=== PATIENT | male | born 1995 | race Caucasian/White ===

== ENCOUNTER → 2017-11-18 14:03 | Outpatient (CLI) | payer OTHER, SELFPAY ==
--- NOTE | 2017-11-18 14:34 | XR_ITS ---
XR knee LT 3V HISTORY: ITS.REASON: ACUTE LT KNEE PAIN ORDERING PHYSICIAN: Alina Hanson PATIENT AGE: 22 years COMPARISON: FINDINGS: No fracture or dislocation. No lytic or blastic change. Normal mineralization. No significant arthritic changes evident. There is increased soft tissue density in the suprapatellar region consistent with knee joint effusion. IMPRESSION: Suprapatellar effusion otherwise negative
== END ==
PROVIDERS: PCP Nurse Practitioner; Visit Provider Nurse Practitioner
DX: M25.562 Pain in left knee (principal)
CPT/HCPCS: 73562

== ENCOUNTER 2021-08-18 01:09 | Emergency (ER) | payer SELFPAY ==
[2021-08-18 01:10] VITALS: BP 156/99; PULSE 122; RESP 18; TEMP 37.1; O2SAT 95; BMI 21.1
--- NOTE | 2021-08-18 01:18 | HMH.EDMCLR ---
ED Disposition Clinical Impression: Medical clearance for incarceration Disposition: Home, Self-Care Condition on Discharge: Good Instructions: DI for Substance Use Disorder Additional Instructions: see pcp for follow up Referrals: Willy Mathews MD [Primary Care Provider] - - Critical Care Critical Care Time: No Attestation: On 08/18/21, the high probability of a clinically significant, sudden or life threatening deterioration of the following system(s) required my full and direct attention, intervention and personal management. The time I documented below is in addition to time spent performing reported procedures but includes the following listed in this critical care notation. Medical Decision Making - Medical Records Medical records reviewed: Yes: I reviewed the patient's medical records. - Man Inquiry Pt receiving controlled substance: No Vital Signs: 08/18/21 01:10 Temperature 98.7 F Temperature Source Oral Pulse Rate [Right] 122 H Respiratory Rate 18 Blood Pressure [Right Arm] 156/99 H Blood Pressure Mean [Right Arm] 118 02 Sat by Pulse Oximetry 95 - Lab Data Lab results reviewed: Yes: I reviewed the patient's lab results. Medical Decision Narrative: stable exam Medical Clearance HPI - General Chief complaint: Medical Clearance Stated complaint: medical clearance Time Seen by Provider: 08/18/21 01:15 Mode of Arrival: Ambulatory Source of Information: Patient, Medical Record Limitations: No Limitations Description of Symptoms (Recalled from ER Triage Doc. by RN): pt here for medical clearence. pt has no c/o - History of Present Illness HPI Narrative: no c/o MD complaint: medical clearance requested Onset (ago): hour(s) Reason for Medical Clearance: medical condition Place: home Traumatic Symptoms: denies traumatic injury Associated Symptoms: denies other symptoms Treatments Prior to Arrival: none Home medications: Home Medications Medication Instructions Recorded Confirmed No Known Home Medications 03/22/19 03/22/19 Allergies/Adverse reactions: Allergies Allergy/AdvReac Type Severity Reaction Status Date / Time PEANUTS (FOOD) Allergy Severe S-DIFF. Uncoded 07/05/17 15:02 BREATHING [facility] History - Hepatitis A Screen Drug use history?: No High risk sexual behaviors?: No History of sexually transmitted infection?: No Currently employed?: No Childcare worker?: No Do you have indoor plumbing?: Yes Do you have electricity?: Yes Attestation statement:: This patient has been screened for Hepatitis A risk factors. I have reviewed the patient's past medical history: Yes 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: Denies:: Diabetes Mellitus Type 1, Diabetes Mellitus Type 2 Other Surgeries: Yes: No Previous Surgery - Social History Smoking Status: Current every day smoker Tobacco Type: cigarettes # Packs/Day (cigarettes): 1 Alcohol Intake: current Alcohol Intake Frequency:: a few times a week Occupational Status: employed Family Hx:: No significant family history ROS Obtained: Yes All systems reviewed & no additional complaints Physical Exam - General General appearance: alert - Head Head exam: normocephalic - Eye Eye exam: Present: PERRL, EOMI - ENT ENT exam: Present: mucous membranes moist - Neck Neck exam: Present: trachea midline - Respiratory Respiratory exam: Present: normal lung sounds bilaterally. Absent: respiratory distress - Cardiovascular Cardiovascular exam: Present: regular rate. Absent: systolic murmur - Abdominal Exam Abdominal exam: Present: soft - Extremities Exam Extremities exam: Present: full ROM - Neurological Exam Neurological exam: Present: alert, oriented X3, CN II-XII intact. Absent: motor sensory deficit - Psychiatric Psychiatric exam: Present: normal affect - Skin Skin exam: Absent: rash
[2021-08-18 01:24] VITALS: BP 156/99; PULSE 122; RESP 18; TEMP 37.1; O2SAT 95
== END 2021-08-18 01:25 | disposition home or self-care (01) ==
PROVIDERS: Emergency Provider Emergency Medicine; PCP Family Medicine
DX: Z00.8 Encounter for other general examination (principal); F17.210 Nicotine dependence, cigarettes, uncomplicated
CPT/HCPCS: 99282

== ENCOUNTER 2022-01-02 11:36 | Emergency (ER) | payer SELFPAY ==
[2022-01-02 11:48] VITALS: BP 130/92; PULSE 104; RESP 17; TEMP 37.8; O2SAT 97; BMI 21.7
--- NOTE | 2022-01-02 11:53 | HMH.EDUTC ---
[facility] [place] Disposition Clinical Impression: Viral syndrome Pharyngitis Qualifiers: Pharyngitis/tonsillitis etiology: unspecified etiology Qualified Code(s): J02.9 - Acute pharyngitis, unspecified Disposition: Home, Self-Care Condition on Discharge: Good Instructions: Preventing the Spread of Coronavirus Discharge Instructions Additional Instructions: Drink plenty of fluids. Take tylenol or ibuprofen for pain or fever. Take the medications as directed. Follow up with your regular doctor. GO TO THE ER FOR ANY WORSENING SYMPTOMS Quarantine until you know the results of your covid-19 test. Notify your school or workplace of your results and follow their instructions regarding return to work/school. Prescriptions: Brompheniramine/Pseudoephed/Dm [Bromfed Dm Cough Syrup] 5 ml PO Q6HP PRN #240 ml PRN Reason: Cough Transmission Status: Received by [id number] Amoxicillin [Amoxicillin 500mg Tab] 500 mg PO TID 10 Days #30 tab Transmission Status: Received by [id number] predniSONE [Prednisone 20mg Tab] 20 mg PO BID 3 Days #6 tab Transmission Status: Received by [id number] Referrals: Provider,Referral, [Primary Care Provider] - Forms: Work/School Release Time of Disposition: 12:31 Medical Decision Making - Medical Records Medical records reviewed: No: I reviewed the patient's medical records. - Man Inquiry Pt receiving controlled substance: No Vital Signs: 01/02/22 11:48 01/02/22 12:37 Temperature 100.1 F H 100.0 F H Temperature Source Oral Pulse Rate 104 H Pulse Rate [Left Radial] 104 H Respiratory Rate 17 17 Blood Pressure 130/92 H Blood Pressure [Right Arm] 130/92 H Blood Pressure Mean [Right Arm] 104 02 Sat by Pulse Oximetry 97 - Lab Data Lab Results 01/02/22 11:45: Group A Strep Rapid Negative Orders (Tests/Meds): ORDERS Category Date Time Status Strep Screen Confirmation Stat Micro 01/02/22 11:45 Received [facility] [place] HPI - General Stated complaint: sore throat Time Seen by Provider: 01/02/22 11:54 Description of Symptoms (Recalled from Triage Doc. by RN): patient comes in today for sore throat and possible fever blisters. symptoms began 3 days ago HEENT Symptoms (Recalled from RN notes): Yes Resp Symptoms (Recalled from RN notes): No Skin Symptoms (Recalled from RN notes): No MS Symptoms (Recalled from RN notes): No Functional Status (Recalled from RN notes): wnl - History of Present Illness Provider Complaint: He c/o sore throat for the past 3 days. He denies significant congestion and cough. - Related Data Previous Rx's Medication Instructions Recorded Amoxicillin [Amoxicillin 500mg Tab] 500 mg PO TID 10 Days #30 tab 01/02/22 Brompheniramine/Pseudoephed/Dm 5 ml PO Q6HP PRN #240 ml 01/02/22 [Bromfed Dm Cough Syrup] predniSONE [Prednisone 20mg 20 mg PO BID 3 Days #6 tab 01/02/22 Tab] Allergies Allergy/AdvReac Type Severity Reaction Status Date / Time PEANUTS (FOOD) Allergy Severe S-DIFF. Uncoded 07/05/17 15:02 BREATHING - Worker's Comp Is this a Worker's Comp case?: No [facility] History - Hepatitis A Screen Attestation statement:: This patient has been screened for Hepatitis A risk factors. I have reviewed the patient's past medical history: Yes 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: Denies:: Diabetes Mellitus Type 1, Diabetes Mellitus Type 2 Other Surgeries: Yes: No Previous Surgery - Social History Smoking Status: Current every day smoker Tobacco Type: cigarettes # Packs/Day (cigarettes): 1 Alcohol Intake: current Alcohol Intake Frequency:: a few times a week Occupational Status: employed Family Hx:: No significant family history ROS Obtained: Yes All systems reviewed & no additional complaints - Constitutional Constitutional: Reports as per HPI - Eyes Eyes: Denies eye discharge - ENT Ears, Nose, Mouth, and Throat: Reports as per HPI - Cardiovascular Cardiovascular: Denies kunal
[2022-01-02 12:17] LABS: Strep Scrn Group A (Rapid) Negative (Negative)
[2022-01-02 12:37] VITALS: BP 130/92; PULSE 104; RESP 17; TEMP 37.8
== END 2022-01-02 12:42 | disposition home or self-care (01) ==
PROVIDERS: Emergency Provider Nurse Practitioner Family
DX: J02.9 Acute pharyngitis, unspecified (principal); F17.210 Nicotine dependence, cigarettes, uncomplicated; Z20.822 Contact with and (suspected) exposure to COVID-19; Z79.01 Long term (current) use of anticoagulants; Z91.010 Allergy to peanuts
CPT/HCPCS: 87430; 99213; C9803; G0463; U0003; U0005

== ENCOUNTER 2022-11-25 18:12 | Emergency (ER) | payer SELFPAY ==
[2022-11-25 18:33] VITALS: BP 141/90; PULSE 87; RESP 16; TEMP 37.1; O2SAT 98; BMI 21.7
--- NOTE | 2022-11-25 18:33 | EXP.UTC ---
Discharge Plan Disposition Patient Disposition: Home, Self-Care Condition: Good Prescriptions Prescriptions: New ondansetron 4 mg Tablet,Disintegrating 4 mg PO Q8H PRN (Reason: Nausea) Qty: 12 0RF No Action prednisone 20 MG tablet 20 mg PO BID 3 Days Qty: 6 0RF amoxicillin 500 MG tablet 500 mg PO TID 10 Days Qty: 30 0RF tjtqweffjenqqkk-zzaduioqm-EA 118 ML syrup 5 ml PO Q6HP PRN (Reason: Cough) Qty: 240 0RF Referrals Follow up/Referrals: Provider,Referral, MD [Primary Care Provider] - See instructions Activity Restrictions/Add. Instructions Additional Instructions/Restrictions: Drink plenty of fluids. Take tylenol or ibuprofen for pain or fever. Take the medications as directed. Follow up with your regular doctor. GO TO THE ER FOR ANY WORSENING SYMPTOMS Clinical Impressions Clinical Impression: Gastroenteritis Stand Alone Forms Stand Alone Forms: Work/School Release Instructions Patient Instructions: DI for Viral Gastroenteritis -- Adult, Ondansetron Discharge ED Provider: Morales [place] [facility] General Stated complaint: vomiting, Needs Work note Time Seen by Provider: 11/25/22 18:32 History of Present Illness Provider Complaint: He states that since last night he has had n/v/d. He denies abdominal pain. His girlfriend has had similar symptoms. Related Data Previous Rx's Medication Instructions Recorded amoxicillin 500 mg tablet 500 mg PO TID 10 days #30 tabs 01/02/22 dqftuetaxmpafum-egotcrdtluuvxop-OK 5 ml PO Q6HP PRN Cough #240 mL 01/02/22 2 mg-30 mg-10 mg/5 mL oral syrup prednisone 20 mg tablet 20 mg PO BID 3 days #6 tabs 01/02/22 ondansetron 4 mg disintegrating 4 mg PO Q8H PRN Nausea #12 tabs 11/25/22 tablet Allergies Allergy/AdvReac Type Severity Reaction Status Date / Time PEANUTS (FOOD) Allergy Severe S-DIFF. Uncoded 07/05/17 15:02 BREATHING [facility] Disclaimer: The information contained in this section may have been updated after the patient was seen, as this information can be updated by other users. Social History Smoking Status: Current every day smoker tobacco type: cigarettes packs per day: 1 alcohol intake: current current occupational status: employed Travel in the last 8 weeks: None ROS Obtained: Yes All systems reviewed & no additional complaints except as documented Constitutional Constitutional: Denies chills, Denies fever(s) and Reports poor appetite ENT Ears, Nose, Mouth, and Throat: Denies dizziness and Denies sore throat Cardiovascular Cardiovascular: Denies dyspnea Respiratory Respiratory: Denies chest congestion, Denies cough and Denies dyspnea Genitourinary Male Genitourinary: Denies hematuria, Denies urinary frequency, Denies urinary hesitancy, Denies urinary incontinence and Denies urinary urgency Musculoskeletal Musculoskeletal: Denies arthralgias Integumentary/Breasts Skin/Breast: Denies rash Neurologic Neurologic: Denies dizziness Physical Exam General General appearance: alert and in no apparent distress Head Head exam: atraumatic and normocephalic Eye Eye exam: Present normal appearance, PERRL and EOMI ENT ENT exam: Present normal exam, normal oropharynx, mucous membranes moist, TM's normal bilaterally and normal external ear exam Neck Neck exam: Present normal inspection, full ROM and trachea midline; Absent tenderness, meningismus or lymphadenopathy Chest Chest inspection: Present normal inspection and symmetric chest wall rise; Absent tenderness, rash or abscess Respiratory Respiratory exam: Present normal lung sounds bilaterally; Absent respiratory distress, wheezes or stridor Cardiovascular Cardiovascular exam: Present regular rate and normal rhythm; Absent irregular rhythm, systolic murmur, diastolic murmur or JVD Abdominal Exam Abdominal exam: Present soft and hyperactive bowel sounds; Absent distention, tenderness, guarding, rebound
[2022-11-25 18:38] VITALS: BP 141/90; PULSE 87; RESP 16; TEMP 37.1
== END 2022-11-25 18:40 | disposition home or self-care (01) ==
PROVIDERS: Emergency Provider Nurse Practitioner Family
DX: K52.9 Noninfective gastroenteritis and colitis, unspecified (principal); R11.2 Nausea with vomiting, unspecified; F17.210 Nicotine dependence, cigarettes, uncomplicated
CPT/HCPCS: 99212; 99214; G0463

== ENCOUNTER 2023-01-31 13:15 | Emergency (ER) | payer OTHER, SELFPAY ==
[2023-01-31 13:30] VITALS: BP 122/79; PULSE 72; RESP 20; TEMP 37.1; O2SAT 98; BMI 23.1
--- NOTE | 2023-01-31 13:49 | EXP.UTC ---
Discharge Plan Disposition Patient Disposition: Home, Self-Care Condition: Good Prescriptions Prescriptions: New ondansetron 4 mg tablet,disintegrating 4 mg PO Q8H PRN (Reason: nausea and vomiting) Qty: 10 0RF Referrals Follow up/Referrals: Provider,Referral, MD [Primary Care Provider] - See instructions Activity Restrictions/Add. Instructions Additional Instructions/Restrictions: Drink extra fluids with and between meals. If you have difficulty drinking, try very small amounts of water or suck on ice chips. ? Avoid fruit juices, as these do not replace minerals and can actually increase diarrhea. ? Children and adults can use sports drinks to replenish electrolytes. Younger children and infants should use products formulated for children, like oral rehydration solutions. ? Eat food in small amounts and let your stomach recover. ? Get lots of rest. You may feel tired or weak. ? No greasy or fried foods for the next 24-48 hours BRAT diet Bananas Rice Apples and [place] ? Make sure to drink plenty of liquids ? Return if needed ? Straight to ER if any life threatening symptoms ? Zofran as prescribed ? Follow up with family doctor in the next 48-72 hours if no improvement or any worsening of symptoms Clinical Impressions Clinical Impression: Nausea vomiting and diarrhea Instructions Patient Instructions: Nausea and Vomiting-Adult, Diarrhea Discharge ED Provider: Isabella Rodriguez [facility] General Stated complaint: vomiting, diarrhea Mode of Arrival: Ambulatory Source of Information: Patient Limitations: No Limitations Time Seen by Provider: 01/31/23 13:50 Description of Symptoms (Recalled from Triage Doc. by RN): PATIENT C/O VOMITING, NAUSEA AND DIARRHEA THAT STARTED LAST NIGHT. HE REPORTS HIS DAUGHTER HAD THE SAME SYMPTOMS LAST NIGHT HEENT Symptoms (Recalled from RN notes): No Resp Symptoms (Recalled from RN notes): No Skin Symptoms (Recalled from RN notes): No MS Symptoms (Recalled from RN notes): No Functional Status (Recalled from RN notes): WNL History of Present Illness Provider Complaint: Patient states that he started with N/V/D yesterday States that daughter was having same symptoms thinks he had a stomach bug and needed a note for work Related Data Previous Rx's Medication Instructions Recorded ondansetron 4 mg disintegrating 4 mg PO Q8H PRN nausea and 01/31/23 tablet vomiting #10 tabs Allergies Allergy/AdvReac Type Severity Reaction Status Date / Time peanut Allergy Verified 01/31/23 13:39 Worker's Comp Is this a Worker's Comp case?: No [facility] Disclaimer: The information contained in this section may have been updated after the patient was seen, as this information can be updated by other users. 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 (Updated 01/31/23 @ 14:16 by Isabella Rodriguez APRN) Asthma Social History Smoking Status: Current every day smoker tobacco type: cigarettes packs per day: 1 alcohol intake: current current occupational status: employed Travel in the last 8 weeks: None ROS Obtained: Yes All systems reviewed & no additional complaints except as documented and Yes Systems reviewed as appropriate & no additional complaints except as documented Constitutional Constitutional: Reports system reviewed and no additional complaints, except as documented, Reports as per HPI and Denies fever(s) ENT Ears, Nose, Mouth, and Throat: Reports system reviewed and no additional complaints, except as documented, Reports as per HPI, Denies otalgia, Denies sinus pain, Denies sinus pressure and Denies sore throat Cardiovascular Cardiovascular: Reports system reviewed and no additional complaints, except as documented, Reports as per HPI and Denies chest pain Respiratory Respiratory: Reports system reviewed and no additional complaints, except as documented, Re
[2023-01-31 14:16] VITALS: BP 122/79; PULSE 72; RESP 20; TEMP 37.1; O2SAT 98
== END 2023-01-31 14:20 | disposition home or self-care (01) ==
PROVIDERS: Emergency Provider Nurse Practitioner
DX: R19.7 Diarrhea, unspecified (principal); R11.2 Nausea with vomiting, unspecified; J45.909 Unspecified asthma, uncomplicated
CPT/HCPCS: 99212; 99214; G0463

== ENCOUNTER 2023-07-16 16:37 | Emergency (ER) | payer OTHER, SELFPAY ==
[2023-07-16 16:38] VITALS: BP 174/109; PULSE 124; RESP 24; TEMP 36.9; O2SAT 96; BMI 23.1
--- NOTE | 2023-07-16 16:53 | PC.NURSE ---
DR MORELOS AT BEDSIDE
--- NOTE | 2023-07-16 17:02 | ED_ITS ---
Discharge Plan Disposition Patient Disposition: Left Against Medical Advice Prescriptions Prescriptions: No Action ondansetron 4 mg tablet,disintegrating 4 mg PO Q8H PRN (Reason: nausea and vomiting) Qty: 10 0RF Referrals Follow up/Referrals: Provider,Referral, [Primary Care Provider] - See instructions Clinical Impressions Clinical Impression: Tachycardia, Head injury Discharge ED Provider: Virginia Quintana General Adult HPI General Chief complaint: Head Injury Stated complaint: HEAD INJURY Time Seen by Provider: 07/16/23 16:52 Mode of Arrival: Wheelchair Source of Information: Patient and Parent(s) Limitations: No Limitations Description of Symptoms (Recalled from ER Triage Doc. by RN): pt presents to ED after stating he hit his head while helping his mom move furniture around 1300. pt reports he believes he did black out. pt crying and anxious at triage. History of Present Illness HPI narrative: Patient is a 28-year-old male presents today with head injury. States he was helping his mom move stood up and hit his head onto a metal trailer and lost consciousness shortly after that. Woke up and has felt okay since that time but called his father crying. States he is not normally a crier and that he feels very confused right now he denies any alcohol or drug use today. States that he does drink regularly last drink was yesterday. States he only has a few drinks a day and that he does not have any withdrawal symptoms historically. No nausea and vomiting associated with this. No focal neurologic deficits from historical standpoint. Related Data Previous Rx's Medication Instructions Recorded ondansetron 4 mg disintegrating 4 mg PO Q8H PRN nausea and 01/31/23 tablet vomiting #10 tabs Allergies Allergy/AdvReac Type Severity Reaction Status Date / Time peanut Allergy Verified 01/31/23 13:39 [facility] Disclaimer: The information contained in this section may have been updated after the patient was seen, as this information can be updated by other users. 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 (Updated 07/16/23 @ 17:05 by Virginia Quintana MD) Asthma Social History Smoking Status: Current every day smoker tobacco type: cigarettes packs per day: 1 alcohol intake: current current occupational status: employed Travel in the last 8 weeks: None ROS Obtained: Yes All systems reviewed & no additional complaints except as documented Physical Exam General General appearance: alert and in no apparent distress Eye Eye exam: Present conjunctival redness and other (Dilated pupils bilaterally) Respiratory Respiratory exam: Present normal lung sounds bilaterally; Absent respiratory distress Cardiovascular Cardiovascular exam: Present normal rhythm and tachycardia (Heart rate 125-140 on my evaluation) Abdominal Exam Abdominal exam: Present soft; Absent distention or tenderness Neurological Exam Neurological exam: Present alert, oriented X3, CN II-XII intact and normal gait; Absent motor sensory deficit Psychiatric Psychiatric exam: Present other (Bizarre affect) Medical Decision Making Man Inquiry Pt receiving controlled substance: No Vital Signs: 07/16/23 16:38 Temperature 98.5 F Temperature Source Oral Pulse Rate [Right Radial] 124 H Respiratory Rate 24 Blood Pressure [Right Arm] 174/109 H Blood Pressure Mean [Right Arm] 130 Blood Pressure Source [Right Arm] Automatic Cuff Blood Pressure Position [Right Arm] Sitting 02 Sat by Pulse Oximetry 96 Oxygen Delivery Method Room Air Orders (Tests/Meds): ED MEDICATIONS Generic Name Dose Route Start Last Admin Trade Name Freq PRN Reason Stop Dose Admin Lactated Ringer's 1,000 mls @ 999 mls/hr 07/16/23 17:00 Lactated Ringer's 1000 Ml Bag IV 07/16/23 18:00 .Q1H1M MICHAELA Discontinued Medications Generic Name Dose Route Start Last Admin Trade Name Freq PRN Reason Stop Dose Admin Acetaminophen 1,000 mg 07/16/23 16:59 Acetaminophen 1,000mg/100ml Vial IV 07/16/23 17:00 ONCE ONE ORDERS Category Date Time Status CT head/brain wo con Stat Cat Scan 07/16/23 16:59 Ordered CBC w/Auto Diff [Complete Blood Count Auto Diff] Stat Lab 07/16/23 17:00 Ordered CMP [Comprehensive Metabolic Panel] Stat Lab 07/16/23 17:00 Ordered Ethanol [Ethyl Alcohol] Stat Lab 07/16/23 17:01 Ordered UA [Urinalysis and Microscopic] Stat Lab 07/16/23 17:00 Ordered UDS [Drug Screen,Urine] Stat Lab 07/16/23 17:00 Ordered Medical Decision Narrative: Is a 28-year-old male presented today with significant tachycardia after head injury and acting little bit bizarre and tearful. His father who is at the bedside states he is never seen his son act like this before. I suspect possible drug use we will get a urine drug screen as well as an alcohol level. Certainly could be alcohol withdrawal as well with his history of drinking. IV fluids will be administered I will get a CT scan of the patient's head he has a GCS of 15 normal neurologic exam I do not suspect a significant intracranial injury. Reassessment 5:16 PM patient got disgruntled with his dad who is refusing all workup. He does have a GCS of 15 and a nonfocal neurologic exam. He is acting a little bit bizarre I suspect that has been doing some drugs or possibly some alcohol cannot confirm this definitively his father was also concerned about this. Patient is adamantly refusing all workup. He understands that he could be missing a significant injury that could be life-threatening and cause disability or . He articulated that to me and voiced that to me he has a mental capacity be making his decisions we could not hold him against as well and he signed out AGAINST MEDICAL ADVICE. Critical Care Critical Care Time Critical Care Time: No
--- NOTE | 2023-07-16 17:13 | PC.NURSE ---
Pt is refusing to have blood drawn or provide a urine sample at this time.
--- NOTE | 2023-07-16 17:17 | PC.NURSE ---
staff went into room to start IV and administer medications when pt stated he no longer wanted to be seen as a patient and was ready to leave. Dr. Quintana notified and went in and spoke with patient regarding leaving. Risks explained to patient per Dr. Quintana and this nurse regarding leaving without any test. pt informed to return at any time.
[2023-07-16 17:20] VITALS: BP 174/109; PULSE 124; RESP 24; TEMP 36.9; O2SAT 96
== END 2023-07-16 17:20 | disposition left against medical advice (07) ==
PROVIDERS: Emergency Provider Student in an Organized Health Care Education/Training Program
DX: S06.9X9A Unspecified intracranial injury with loss of consciousness of unspecified duration, initial encounter (principal); F17.210 Nicotine dependence, cigarettes, uncomplicated; J45.909 Unspecified asthma, uncomplicated; W22.09XA Striking against other stationary object, initial encounter; R00.0 Tachycardia, unspecified
CPT/HCPCS: 96361; 96374; 99284; 99285

== ENCOUNTER 2023-10-01 08:18 | Emergency (ER) | payer OTHER, SELFPAY ==
[2023-10-01 08:25] VITALS: BP 148/83; PULSE 96; RESP 20; TEMP 37; O2SAT 98; BMI 23.7
[2023-10-01 08:43] LABS: UTC Strep Screen (Rapid) Positive (Negative)
--- NOTE | 2023-10-01 08:43 | EXP.UTC ---
Discharge Plan Disposition Patient Disposition: Home, Self-Care Condition: Good Prescriptions Prescriptions: New azithromycin 250 mg tablet 250 mg PO DIRECTED Qty: 6 0RF Rx Instructions: Take two (2) tablets on day #1, then one (1) tablet day #2 thru #5 No Action ondansetron 4 mg tablet,disintegrating 4 mg PO Q8H PRN (Reason: nausea and vomiting) Qty: 10 0RF Referrals Follow up/Referrals: Provider,Referral, MD [Primary Care Provider] - See instructions Activity Restrictions/Add. Instructions Additional Instructions/Restrictions: Start antibiotics today be sure to take it as ordered with the full length of time although you should start feeling better in 24-48 hours. Change toothbrush and toothpaste 24-48 hours after starting antibiotics Tylenol or Motrin as needed for fever or pain Encourage fluids, water, Gatorade, Powerade, try cold fluids, popsicles, ice cream will make it feel better You are contagious for 24 hours. Avoid kissing anyone, no eating or drinking after anyone. You are contagious. Follow-up the ER for new or worsening symptoms or no noticeable improvement over the next 24-48 hours. Follow-up with PCP this week. Clinical Impressions Clinical Impression: Strep sore throat Instructions Patient Instructions: DI for Sinusitis Discharge ED Provider: Chace ([facility])Annette [facility] [place] HPI General Stated complaint: sore throat Mode of Arrival: Ambulatory Source of Information: Patient Limitations: No Limitations Time Seen by Provider: 10/01/23 08:44 Description of Symptoms (Recalled from Triage Doc. by RN): PATIENT C/O SORE THROAT WITH WHITE SPOTS X APPROX 4 DAYS AND A SWOLLEN UVULA THIS MORNING HEENT Symptoms (Recalled from RN notes): Yes Resp Symptoms (Recalled from RN notes): No Skin Symptoms (Recalled from RN notes): No MS Symptoms (Recalled from RN notes): No Functional Status (Recalled from RN notes): WNL History of Present Illness Provider Complaint: 28 yr old male presents for sore throat for 4 days with white spots and this am uvula swollen and touching tongue Related Data Previous Rx's Medication Instructions Recorded ondansetron 4 mg disintegrating 4 mg PO Q8H PRN nausea and 01/31/23 tablet vomiting #10 tabs azithromycin 250 mg tablet 250 mg PO DIRECTED #6 tabs 10/01/23 Allergies Allergy/AdvReac Type Severity Reaction Status Date / Time peanut Allergy Verified 01/31/23 13:39 Worker's Comp Is this a Worker's Comp case?: No [facility] Disclaimer: The information contained in this section may have been updated after the patient was seen, as this information can be updated by other users. 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) Smoking Status: Current every day smoker tobacco type: cigarettes packs per day: 1 alcohol intake: current current occupational status: employed Travel in the last 8 weeks: None ROS Obtained: Yes All systems reviewed & no additional complaints except as documented Constitutional Constitutional: Reports system reviewed and no additional complaints, except as documented Eyes Eyes: Reports system reviewed and no additional complaints, except as documented ENT Ears, Nose, Mouth, and Throat: Reports system reviewed and no additional complaints, except as documented, Reports as per HPI and Reports sore throat Cardiovascular Cardiovascular: Reports system reviewed and no additional complaints, except as documented Respiratory Respiratory: Reports system reviewed and no additional complaints, except as documented Gastrointestinal Gastrointestingal: Reports system reviewed and no additional complaints, except as documented Genitourinary Male Genitourinary: Reports system reviewed and no additional complaints, except as documented Musculoskeletal Musculoskeletal: Reports system reviewed and no additional complaints, except as documented Integumentary/Breasts Skin/Breast: Reports system reviewed and no additional complaints, except as documented Hematologic/Lymphatic Henatologic/Lymphatic: Reports system reviewed and no additional complaints, except as documented Allergic/Immunologic Allergic/Immunologic: Reports system reviewed and no additional complaints, except as documented Physical Exam General General appearance: alert and in no apparent distress Head Head exam: atraumatic Eye Eye exam: Present normal appearance and PERRL ENT ENT exam: Present mucous membranes moist and TM's normal bilaterally Expanded ENT Exam Open Mouth Image: 1. red, swollen Throat exam: Present tonsillar erythema, tonsillomegaly and tonsillar exudate Respiratory Respiratory exam: Present normal lung sounds bilaterally Cardiovascular Cardiovascular exam: Present regular rate and normal rhythm Neurological Exam Neurological exam: Present alert and oriented X3 Skin Skin exam: Present warm and intact Medical Decision Making Man Inquiry Pt receiving controlled substance: No Man was queried for this patient: No Vital Signs: 10/01/23 08:25 Temperature 98.6 F Temperature Source Oral Pulse Rate [Right Brachial] 96 H Respiratory Rate 20 Blood Pressure [Right Arm] 148/83 H Blood Pressure Mean [Right Arm] 104 Blood Pressure Source [Right Arm] Automatic Cuff Blood Pressure Position [Right Arm] Sitting 02 Sat by Pulse Oximetry 98 Oxygen Delivery Method Room Air Lab Data Lab results reviewed: Yes I reviewed the patient's lab results. Orders (Tests/Meds): ED MEDICATIONS Generic Name Dose Route Start Last Admin Trade Name Freq PRN Reason Stop Dose Admin Dexamethasone Sodium Phosphate 4 mg 10/01/23 08:40 Dexamethasone 4mg/Ml 1ml Vial IM 10/01/23 08:41 ONCE ONE
[2023-10-01] MEDS: DEXAMETHASONE 4MG/ML 1ML VIAL 4 MG IM (08:47)
[2023-10-01 08:48] VITALS: BP 148/83; PULSE 96; RESP 20; TEMP 37; O2SAT 98
== END 2023-10-01 08:58 | disposition home or self-care (01) ==
PROVIDERS: Emergency Provider Nurse Practitioner Family
DX: J02.0 Streptococcal pharyngitis (principal); J45.909 Unspecified asthma, uncomplicated; F17.210 Nicotine dependence, cigarettes, uncomplicated
CPT/HCPCS: 87880; 96372; 99212; 99214; G0463

== ENCOUNTER 2024-05-29 07:59 | Emergency (ER) | payer OTHER, SELFPAY ==
[2024-05-29 08:00] VITALS: BP 146/103; PULSE 111; RESP 18; TEMP 36.2; O2SAT 96; BMI 21.1
--- NOTE | 2024-05-29 08:15 | PC.NURSE ---
DR JESSICA AT BEDSIDE
--- NOTE | 2024-05-29 08:17 | ECG_ITS ---
APPROVED REPORT Exam: Resting ECG HR:119 bpm ECG Measurements Heart Rate 119 AXES [place] 124 P 54 QRSd 85 QRS 74 QT 303 T 40 QTc 374 Conclusion SINUS TACHYCARDIA Electronically signed by : ELANA JESSICA, 05/30/2024 08:15:39
[2024-05-29 08:26] LABS: Basophils # 0.2 K/mm3 (0-0.2); Basophils % 1.7 % (0.1-2.0); Eosinophils # 0.1 K/mm3 (0.0-0.4); Eosinophils % 0.6 % (0.1-12.0); Hematocrit 52.4 % (42.0-52.0); Lymphocytes # 1.2 K/mm3 (0.7-4.5); Mean Corpuscular HGB Conc 35.6 g/dL (31.8-35.4); Mean Corpuscular Hemoglobin 32.9 pg (27.0-31.2); Mean Corpuscular Volume 92.4 fl (80-94); Mean Platelet Volume 8.4 fl (7.4-10.4); Monocytes # 0.5 K/mm3 (0.1-1.0); Monocytes % 5.2 % (1.7-9.3); Neutrophils # 7.7 K/mm3 (1.8-7.8); Neutrophils % 80.6 % (37.0-80.0); Platelet Count 229 K/mm3 (142-424); Red Blood Count 5.67 M/mm3 (4.60-6.20); Red Cell Distribution Width 13.4 % (11.5-17.5); White Blood Count 9.6 K/mm3 (4.8-10.8)
[2024-05-29] MEDS: ONDANSETRON 4MG/2ML VIAL 4 MG IV (08:26)
[2024-05-29] MEDS: 0.9 % SODIUM CHLORIDE 1000ML 1,000 ML 999 ML IV ×2 (08:27→09:14)
--- NOTE | 2024-05-29 08:28 | HMH.EDGENADL ---
Discharge Plan Disposition Patient Disposition: Home, Self-Care Prescriptions Prescriptions: New ondansetron 4 mg tablet,disintegrating 4 mg PO Q6H PRN (Reason: nausea and vomiting) Qty: 10 0RF nitazoxanide 500 mg tablet 500 mg PO BID 3 Days Qty: 6 0RF Rx Instructions: must administer with a meal/food epinephrine [EpiPen] 0.3 mg/0.3 mL auto-injector 0.3 mg IM Q10M PRN (Reason: anaphylaxis) Qty: 2 0RF Rx Instructions: for 2 doses No Action ondansetron 4 mg tablet,disintegrating 4 mg PO Q8H PRN (Reason: nausea and vomiting) Qty: 10 0RF azithromycin 250 mg tablet 250 mg PO DIRECTED Qty: 6 0RF Rx Instructions: Take two (2) tablets on day #1, then one (1) tablet day #2 thru #5 Referrals Follow up/Referrals: Provider,Referral, MD [Primary Care Provider] - See instructions Activity Restrictions/Add. Instructions Additional Instructions/Restrictions: Call your family doctor to establish care for this visit to the emergency department and schedule follow-up within 48 hours to ensure improvement. If you have any worsening of your condition or any other concerning signs or symptoms, return to the emergency department or your primary care doctor for further evaluation. Nitazoxanide if still having diarrhea after 5 to 7 days. Clinical Impressions Clinical Impression: Cryptosporidial gastroenteritis, DENISSE (acute kidney injury) Stand Alone Forms Stand Alone Forms: Work/School Release Instructions Patient Instructions: DI for Diarrhea and Traveler's Diarrhea -- Adult, DI for Diarrhea and Traveler's Diarrhea -- Child, DI for Nausea -- Adult, DI for Nausea -- Child Print Language Print Language: Portuguese Discharge ED Provider: Robel Brandon General Adult HPI General Chief complaint: Nausea/Vomiting/Diarrhea Stated complaint: vomiting, diarrhea, weak Time Seen by Provider: 05/29/24 08:05 Mode of Arrival: Ambulatory Source of Information: Patient Limitations: No Limitations Description of Symptoms (Recalled from ER Triage Doc. by RN): pt came in for nvd with exposure to gi bug History of Present Illness HPI narrative: Please note that above description of symptoms, in this electronic medical record under categorization of recalled from ER triage doctor by RN are reflective of an initial nursing assessment, however, is not reflective of my full history and physical exam that was personally taken and clarified. Consequentially, this preceding description of symptoms, which may include the patient's categorized chief complaint in the EMR, do not reflect my personal clinical impression, and the ultimate description of history of present illness and patient stated complaints should be deferred to this section of the note. Unless stated otherwise or congruent with this section of the note, additional signs, symptoms, or incongruence should be interpreted as inaccurate with my clinical impression. Related Data Previous Rx's ?Medication ?Instructions ?Recorded ondansetron 4 mg disintegrating 4 mg PO Q8H PRN nausea and 01/31/23 tablet vomiting #10 tabs azithromycin 250 mg tablet 250 mg PO DIRECTED #6 tabs 10/01/23 epinephrine 0.3 mg/0.3 mL 0.3 mg (0.3 mL) IM Q10M PRN 05/29/24 injection, auto-injector (EpiPen) anaphylaxis #2 ea nitazoxanide 500 mg tablet 500 mg PO BID 3 days #6 tabs 05/29/24 ondansetron 4 mg disintegrating 4 mg PO Q6H PRN nausea and 05/29/24 tablet vomiting #10 tabs Allergies Allergy/AdvReac Type Severity Reaction Status Date / Time peanut Allergy Verified 01/31/23 13:39 [facility] Disclaimer: The information contained in this section may have been updated after the patient was seen, as this information can be updated by other users. 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) Smoking Status: Current every day smoker tobacco type: cigarettes packs per day: 1 alcohol intake: current alcohol intake frequency: a few times a week current occupational status: employed Travel in the last 8 weeks: None Other 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 Have you received the Flu Vaccine for this season: No Have you received the Pneumonia Vaccine: No ROS Obtained: Yes All systems reviewed & no additional complaints except as documented Physical Exam General General appearance: alert Head Head exam: atraumatic and normocephalic Eye Eye exam: Present normal appearance, PERRL and EOMI Neck Neck exam: Present normal inspection, full ROM and trachea midline Respiratory Respiratory exam: Present normal lung sounds bilaterally; Absent respiratory distress, wheezes, stridor, accessory muscle use or prolonged expiratory phase Cardiovascular Cardiovascular exam: Present normal rhythm, tachycardia and other (Pulses equal symmetric in upper and lower extremities) Abdominal Exam Abdominal exam: Present soft; Absent distention, tenderness, guarding, rebound, rigidity or pulsatile mass Extremities Exam Extremities exam: Absent edema Neurological Exam Neurological exam: Present alert, oriented X3 and CN II-XII intact; Absent motor sensory deficit Skin Skin exam: Present warm and dry; Absent diaphoresis or erythema Medical Decision Making Medical Records Medical records reviewed: Yes I reviewed the patient's medical records. Screening: Per USPSTF and CDC recommendations, given the prevalence of disease in our region, it is our hospital?s policy to screen for HIV and viral Hepatitis for all patients aged 18 and over and those with ongoing risk factors. Man Inquiry Pt receiving controlled substance: No Man was queried for this patient: No Vital Signs: 05/29/24 08:00 05/29/24 08:44 05/29/24 09:17 Temperature 97.2 F L Temperature Source Oral Pulse Rate 106 H 99 H Pulse Rate [Right Radial] 111 H Respiratory Rate 18 19 14 Blood Pressure 159/109 H 136/88 Blood Pressure [Right Arm] 146/103 H Blood Pressure Mean [Right Arm] 117 02 Sat by Pulse Oximetry 96 96 95 Oxygen Delivery Method Room Air 05/29/24 09:30 05/29/24 10:30 Temperature Temperature Source Pulse Rate 94 H 97 H Pulse Rate [Right Radial] Respiratory Rate 12 18 Blood Pressure 146/98 H 145/101 H Blood Pressure [Right Arm] Blood Pressure Mean [Right Arm] 02 Sat by Pulse Oximetry 99 97 Oxygen Delivery Method Lab Data Lab Results 05/29/24 08:15: WBC 9.6, RBC 5.67, Hgb 18.5 H, Hct 52.4 H, MCV 92.4, MCH 32.9 H, MCHC 35.6 H, RDW 13.4, Plt Count 229, MPV 8.4, Neut % (Auto) 80.6 H, Lymph % (Auto) 12.0, [place] % (Auto) 5.2, Eos % (Auto) 0.6, Baso % (Auto) 1.7, Neut # (Auto) 7.7, Lymph # (Auto) 1.2, [place] # (Auto) 0.5, Eos # (Auto) 0.1, Baso # (Auto) 0.2, Sodium 136, Potassium 4.4, Chloride 101, Carbon Dioxide 13 L, Anion Gap 26.4 H, BUN 33 H, Creatinine 2.50 H, Estimated Creat Clear 46, Estimated GFR 31 L, Est GFR ( Amer) 38 L, Glucose 123 H, Calcium 9.8, Total Bilirubin 1.0, AST 58, ALT 47, Alkaline Phosphatase 79, Total Protein 11.0 H, Albumin 5.6 H, Globulin 5.4 H, Albumin/Globulin Ratio 1.0 L, Lipase 101 05/29/24 08:39: Stl Aeromonas (PCR) Not detected, Stl C. cayetanensis PCR Not detected, Stool Rotavirus (PCR) Not detected, Stl Adenov F 40/41 PCR Not detected, Stool Astrovirus (PCR) Not detected, Stool Campylobacter PCR Not detected, Stl C.difficile Tox PCR Not detected, Stool Cryptosporidium PCR Detected A, Stl E.coli Shiga Tox PCR Not detected, Stool E coli O157 PCR Not detected, Stl Enterotoxigenic E PCR Not detected, Stool EPEC (PCR) Not detected, Stool EAEC (PCR) Not detected, Stl E. histolytica PCR Not detected, Stool Giardia Lamblia PCR Not detected, Stool Salmonella PCR Not detected, Stool Sapovirus (PCR) Not detected, Stl P. shigelloides PCR Not detected, Stl Shigella/EIEC PCR Not detected, St Y.enterocolitica PCR Not detected, Stool Vibrio (PCR) Not detected, Stl Vibrio cholerae PCR Not detected, Stl Norovirus GI/GII PCR Not detected 05/29/24 08:15 05/29/24 08:15 Orders (Tests/Meds): ED MEDICATIONS Discontinued Medications Generic Name Dose Route Start Last Admin Trade Name Freq PRN Reason Stop Dose Admin Sodium Chloride 1,000 mls @ 999 mls/hr 05/29/24 08:18 05/29/24 08:27 Sod Chlor 0.9% 1000ml Bag IV 05/29/24 09:18 999 mls/hr .Q1H1M ONE Administration Sodium Chloride 1,000 mls @ 999 mls/hr 05/29/24 09:12 05/29/24 09:14 Sod Chlor 0.9% 1000ml Bag IV 05/29/24 10:12 999 mls/hr .Q1H1M ONE Administration Ondansetron HCl 4 mg 05/29/24 08:19 05/29/24 08:26 Ondansetron 4mg/2ml Vial IV 05/29/24 08:20 4 mg ONCE ONE Administration ORDERS Category Date Time Status CBC w/Auto Diff [Complete Blood Count Auto Diff] Stat Lab 05/29/24 08:15 Completed CMP [Comprehensive Metabolic Panel] Stat Lab 05/29/24 08:15 Completed Diarrhea 6-11 Panel, Cdiff PCR Stat Lab 05/29/24 08:39 Completed Lipase Stat Lab 05/29/24 08:15 Completed Ova + Parasite Exam Stat Micro 05/29/24 08:18 Received Medical Decision Narrative: 28-year-old male no relevant medical history presenting with diarrhea and vomiting. Patient states that his daughter was diagnosed with Cryptosporidium a few days prior to this. Patient has now had diarrhea followed by vomiting for the last 3 days. Vomiting and diarrhea are nonbloody, not mucousy, none bilious. No fevers or chills. Patient having no discomfort in between episodes of diarrhea and vomiting. While he is vomiting, he has abdominal muscle cramping. When done vomiting, no longer having issues. States that he has felt weak for the past 2 days, has had to call off work yesterday and today, 05/29, due to vomiting, diarrhea, weakness. Still urinating, although it is dark and seldom. History was obtained via conversation with patient. On arrival, patient hemodynamically stable, alert, oriented x4, appropriate, GCS 15, moving all extremities spontaneously, pupils equal and reactive to light. Full physical exam performed and significant for well-appearing male who is in no acute distress. He is tachycardic. Lungs are clear. Abdomen soft, nontender, nondistended. Negative Law's and McBurney's point tenderness. No overlying skin changes. Differential includes enteritis, gastroenteritis, gastritis, dehydration, metabolic disturbance, among others. Patient placed on continuous cardiac monitoring and continuous pulse ox with initial blood pressure 146/103, heart rate 111, saturation 97.2. Independent interpretation of EKG shows sinus tachycardia [address] or T wave changes concern for acute ischemia. DE 124, QRS 85, QTc 374. [place] normal. Patient was given Zofran and 1 L fluids for symptomatic management and correction of underlying abnormalities. Workup independently interpreted and significant for hemoconcentrated with hemoglobin 18.5. Normal white count and platelets. Patient has DENISSE with creatinine 2.5 and BUN 33, with unknown, but presumed normal baseline. Lipase negative. Stool sample Cryptosporidium. On reevaluation, patient still tachycardic, but appears more comfortable. Given DENISSE of 2.5, patient states he does not urinated in over 24 hours, another liter of fluids was administered. CT scan of the abdomen pelvis was considered, but deemed unnecessary due to improvement with conservative management and tolerating p.o. On reevaluation, patient resting comfortably, tachycardia much improved. Tissue perfusion reassessment performed within 3 hours, patient mentating, following commands, good capillary refill and hemodynamically stable. Given patient presentation, workup, history, this most likely represents Cryptosporidium diarrhea. Watch and wait prescription for nitazoxanide was sent to patient's pharmacy, patient agreeable to this plan. Because patient at baseline without signs or symptoms of clinical decompensation, deemed appropriate for discharge. Results were relayed to patient who voiced understanding and were agreeable to outpatient management and follow up. I discussed my clinical impression with patient and answered all questions. At this time, the evidence for any other entities in the differential is insufficient to warrant any further testing or ED observation. This was explained as well. Advisory was given that persistent or worsening symptoms require further evaluation. I confirmed the understanding of this discussion. Close return precautions were discussed and need for close primary care provider follow-up for repeat kidney function testing was recommended. Cancer Program Consultant disclaimer Much of this encounter note is an electronic scalp treatment operator spoken language to printed text. Electronic scalp treatment operator of the spoken language may permit errors. Although I have reviewed the note, some errors may still exist. Critical Care Critical Care Time Critical Care Time: No
[2024-05-29 08:32] LABS: Alanine Aminotransferase 47 U/L (12-78); Albumin Level 5.6 g/dl (3.5-5.0); Alkaline Phosphatase 79 U/L (38-126); Anion Gap 26.4 mEq/L (5-15); Aspartate Amino Transferase 58 U/L (17-59); Blood Urea Nitrogen 33 mg/dl (9-20); Calcium 9.8 mg/dl (8.4-10.2); Carbon Dioxide 13 mmol/L (22.0-30.0); Chloride 101 mmol/L (98-107); Creatinine Clearance Estimated 46 mL/min (50-200); Estimated Glomerular Filt Rate 31 ml/min (>60); GFR (African American) 38 ML/MIN (>60); Globulin 5.4 g/dL (1.3-3.2); Glucose 123 mg/dl (74-100); Lipase 101 U/L (23-300); Potassium 4.4 mmoL/L (3.5-5.1); Sodium 136 mmol/L (136-145)
[2024-05-29 08:39] LABS: Hemoglobin 18.5 g/dL (14.1-18.0)
[2024-05-29 08:44] VITALS: BP 159/109; PULSE 106; RESP 19; O2SAT 96
[2024-05-29 08:45] LABS: Adenovirus F 40/41, stool Not Detected (NotDetected); Astrovirus Not Detected (NotDetected); Campylobacter Not Detected (NotDetected); Clostridium Difficile A/B, PCR Not Detected (NotDetected); Cyclospora Cayetanesis Not Detected (NotDetected); Entamoeba histolytica Not Detected (NotDetected); Enteroaggregative E coli Not Detected (NotDetected); Enteropathogenic E coli Not Detected (NotDetected); Enterotoxigenic E coli Not Detected (NotDetected); Giardia lamblia Not Detected (NotDetected); Norovirus Not Detected (NotDetected); Plesimonas Shigalloides, PCR Not Detected (NotDetected); Rotavirus A Not Detected (NotDetected); Salmonella, PCR Not Detected (NotDetected); Sapovirus Not Detected (NotDetected); Shiga-like toxin E coli Not Detected (NotDetected); Shigella Enterovasive E coli Not Detected (NotDetected); Vibrio Cholerae Not Detected (NotDetected); Vibrio, PCR Not Detected (NotDetected); Yersinia Entercolitica, PCR Not Detected (NotDetected)
[2024-05-29 09:17] VITALS: BP 136/88; PULSE 99; RESP 14; O2SAT 95
[2024-05-29 09:30] VITALS: BP 146/98; PULSE 94; RESP 12; O2SAT 99
--- NOTE | 2024-05-29 10:16 | PC.NURSE ---
pt is tolerating po intake well.
[2024-05-29 10:30] VITALS: BP 145/101; PULSE 97; RESP 18; O2SAT 97
[2024-05-29 10:36] LABS: Cryptosporidium Detected (NotDetected)
[2024-05-29 11:10] VITALS: BP 145/101; PULSE 97; RESP 18; TEMP 36.2; O2SAT 97
== END 2024-05-29 11:11 | disposition home or self-care (01) ==
PROVIDERS: Emergency Provider Emergency Medicine
DX: K52.9 Noninfective gastroenteritis and colitis, unspecified (principal); N17.9 Acute kidney failure, unspecified
CPT/HCPCS: 80053; 83690; 85025; 87506; 93005; 96361; 96374; 99284; J2405; J7030

== ENCOUNTER 2024-11-28 12:26 | Outpatient (CLI) | payer MEDICAID, SELFPAY ==
[2024-11-28 15:26] LABS: Coronavirus 19, PCR Not Detected (NotDetected); Influenza A, PCR Not Detected (NotDetected); Influenza B, PCR Not Detected (NotDetected); Respiratory Syncytial Virus Not Detected (NotDetected)
[2024-11-28 23:09] LABS: Human Rhinovirus Detected (NotDetected)
== END 2024-11-28 23:59 | disposition home or self-care (01) ==
LOC: LAB.DROPOF 11-30 12:27
PROVIDERS: PCP Nurse Practitioner Family; Visit Provider Nurse Practitioner
DX: R52 Pain, unspecified (principal)
CPT/HCPCS: 87631